=== PATIENT | male | born 1950 | race Caucasian/White ===

== ENCOUNTER 2016-11-15 12:08 | Emergency (ER) | payer MEDICARE, BC ==
[2016-11-20] MEDS ORDERED: LIPITOR20 MG PO (08:17)
[2016-11-20] MEDS ORDERED: LOPRESSOR50 MG PO (08:17)
[2016-11-20] MEDS ORDERED: HYDROCHLOROTH12.5 MG PO (08:18)
[2016-11-20] MEDS ORDERED: GLUCOPHAGE500 MG PO (08:18)
[2016-11-20] MEDS ORDERED: ZOLOFT25 MG PO (08:19)
[2016-11-20] MEDS ORDERED: MIRTAZAPINE45 MG PO (08:20)
[2016-11-20] MEDS ORDERED: ZYRTEC10 MG PO (08:20)
[2016-11-20] MEDS ORDERED: LISINOPRIL40 MG PO (08:20)
[2016-11-20] MEDS ORDERED: OMEPRAZOLE20 MG PO (08:21)
[2016-11-20] MEDS ORDERED: NORCO 10-325 T1 EACH PO (08:21)
== END 2016-11-15 13:40 | disposition home or self-care (01) ==
LOC: ER 12:08
DX: S89.301A Unspecified physeal fracture of lower end of right fibula, initial encounter for closed fracture (principal); E11.9 Type 2 diabetes mellitus without complications; I10 Essential (primary) hypertension; F43.10 Post-traumatic stress disorder, unspecified; Z79.899 Other long term (current) drug therapy; Z88.1 Allergy status to other antibiotic agents; Z88.5 Allergy status to narcotic agent; W19.XXXA Unspecified fall, initial encounter; Y92.009 Unspecified place in unspecified non-institutional (private) residence as the place of occurrence of the external cause

== ENCOUNTER → 2016-11-16 | Day surgery (SDC) | payer MEDICARE, BC ==
[~2016-11-16] MED LIST: GLUCOPHAGE500 MG PO; HYDROCHLOROTH12.5 MG PO; LIPITOR20 MG PO; LISINOPRIL40 MG PO; LOPRESSOR50 MG PO; MIRTAZAPINE45 MG PO; NORCO 10-325 T1 EACH PO; OMEPRAZOLE20 MG PO; ZOLOFT25 MG PO; ZYRTEC10 MG PO
== END | disposition home or self-care (01) ==
LOC: SDCH
DX: S82.841A Displaced bimalleolar fracture of right lower leg, initial encounter for closed fracture (principal); I10 Essential (primary) hypertension; E11.9 Type 2 diabetes mellitus without complications; Z88.1 Allergy status to other antibiotic agents; Z88.8 Allergy status to other drugs, medicaments and biological substances; Z79.1 Long term (current) use of non-steroidal anti-inflammatories (NSAID); Z79.891 Long term (current) use of opiate analgesic; Z79.899 Other long term (current) drug therapy; W22.8XXA Striking against or struck by other objects, initial encounter
CPT/HCPCS: J1885; J2704; J2765; J7040

== ENCOUNTER 2016-11-17 07:46 | Observation (INO) | payer MEDICARE, BC ==
[~2016-11-17] VITALS: Ht 177.8 cm; Wt 96.2 kg
[2016-11-20] MEDS ORDERED: LIPITOR20 MG PO (08:17)
[2016-11-20] MEDS ORDERED: LOPRESSOR50 MG PO (08:17)
[2016-11-20] MEDS ORDERED: HYDROCHLOROTH12.5 MG PO (08:18)
[2016-11-20] MEDS ORDERED: GLUCOPHAGE500 MG PO (08:18)
[2016-11-20] MEDS ORDERED: ZOLOFT25 MG PO (08:19)
[2016-11-20] MEDS ORDERED: LISINOPRIL40 MG PO (08:20)
[2016-11-20] MEDS ORDERED: MIRTAZAPINE45 MG PO (08:20)
[2016-11-20] MEDS ORDERED: ZYRTEC10 MG PO (08:20)
[2016-11-20] MEDS ORDERED: NORCO 10-325 T1 EACH PO (08:21)
[2016-11-20] MEDS ORDERED: OMEPRAZOLE20 MG PO (08:21)
== END 2016-11-18 18:07 | disposition home or self-care (01) ==
LOC: SDC 07:46 → MED 17:08
PROVIDERS: ADMIT Orthopaedic Surgery
DX: S82.851A Displaced trimalleolar fracture of right lower leg, initial encounter for closed fracture (principal); E11.9 Type 2 diabetes mellitus without complications; I10 Essential (primary) hypertension; W18.40XA Slipping, tripping and stumbling without falling, unspecified, initial encounter; Y92.009 Unspecified place in unspecified non-institutional (private) residence as the place of occurrence of the external cause
CPT/HCPCS: J1885; J2704; J2765; J7040